=== PATIENT | female | born 1990 ===

== ENCOUNTER 2018-06-27 19:20 | Emergency (ER) | payer SELFPAY ==
[2018-06-27 19:20] VITALS: BMI 25.2
[2018-06-27 19:28] VITALS: RESP 18; TEMP 98.6; O2SAT 99
--- NOTE | 2018-06-27 20:09 | ED PDOC ---
HPI: Female Pain Time Seen by Provider: 06/27/18 20:07 Chief Complaint (Nursing): Female Genitourinary Chief Complaint (Provider): vaginal bleeding History Per: Patient (28 y/o female here with vaginal bleeding and lower abdominal pain crampy today. Patient took a urine test at home. Concerned she will miscarry with heavy bleeding. Has had one normal vaginal delivery;2nd delivery complicated and patient placed on bed rest with cervical cerclage..) Past Medical History Reviewed: Historical Data, Nursing Documentation, Vital Signs Vital Signs: Last Vital Signs Temp 98.6 F 06/27/18 19:25 Pulse 78 06/27/18 19:25 Resp 18 06/27/18 19:25 BP 120/79 06/27/18 19:25 Pulse Ox 99 06/27/18 19:25 - Medical History PMH: Anxiety, Asthma, Gall Bladder Disease (Gallstones), Migraine Denies: Chronic Kidney Disease - Surgical History Surgical History: (1 month ago) - Family History Family History: States: Unknown Family Hx - Immunization History Hx Tetanus Toxoid Vaccination: No Hx Influenza Vaccination: No Hx Pneumococcal Vaccination: No - Home Medications Home Medications: Ambulatory Orders Medication Instructions Recorded Promethazine DM [Phenergan DM 10 ml PO Q8 PRN #300 ml 08/01/17 Syrup] - Allergies Allergies/Adverse Reactions: Allergies Allergy/AdvReac Type Severity Reaction Status Date / Time No Known Allergies Allergy Verified 08/01/17 16:03 Review of Systems ROS Statement: Except As Marked, All Systems Reviewed And Found Negative Physical Exam - Reviewed Nursing Documentation Reviewed: Yes Vital Signs Reviewed: Yes - Physical Exam Appears: Positive for: Well, Non-toxic, No Acute Distress Head Exam: Positive for: ATRAUMATIC, NORMAL INSPECTION, NORMOCEPHALIC Skin: Positive for: Normal Color, Warm, DRY Eye Exam: Positive for: EOMI, Normal appearance, PERRL ENT: Positive for: Normal ENT Inspection Neck: Positive for: Normal, Painless ROM Cardiovascular/Chest: Positive for: Regular Rate, Rhythm Respiratory: Positive for: CNT, Normal Breath Sounds Gastrointestinal/Abdominal: Positive for: Normal Exam, Soft Back: Positive for: Normal Inspection Extremity: Positive for: Normal ROM Neurologic/Psych: Positive for: Alert, Oriented - ECG O2 Sat by Pulse Oximetry: 99 Disposition - Clinical Impression Clinical Impression: Threatened miscarriage in early - Patient ED Disposition Is Patient to be Admitted: Transfer of Care - Disposition Disposition Time: 20:09 Condition: FAIR Patient Signed Over To: Jsa Mcleod Handoff Comments: bloodwork/us
[2018-06-27 20:30] LABS: BASO % 0.6 % (0.0-2.0); EOS % 0.6 % (0.0-4.0); HEMOGLOBIN 14.5 g/dL (12.0-16.0); LYMPH # 1.6 K/uL (1.0-4.3); LYMPH % 20.4 % (20.0-40.0); MEAN CELL VOLUME 91.4 fl (81.0-99.0); MEAN CORPUSCULAR HEMOGLOBIN 31.2 pg (27.0-31.0); MEAN CORPUSCULAR HGB CONC 34.1 g/dL (33.0-37.0); MEAN PLATELET VOLUME 8.9 fl (7.2-11.7); MONO # 0.5 K/uL (0.0-0.8); MONO % 6.1 % (0.0-10.0); NEUT # 5.6 K/uL (1.8-7.0); NEUT % 72.3 % (50.0-75.0); RBC 4.65 Mil/uL (3.80-5.20); RED CELL DISTRIBUTION WIDTH 13.4 % (11.5-14.5); WHITE BLOOD COUNT 7.7 K/uL (4.8-10.8)
[2018-06-27 20:38] LABS: SQUAMOUS EPITHIAL 1 /hpf (0-5); URINE BILIRUBIN NEGATIVE (NEGATIVE); URINE BLOOD LARGE (NEGATIVE); URINE CLARITY CLEAR (Clear); URINE COLOR YELLOW (YELLOW); URINE GLUCOSE (UA) NEG (NEGATIVE); URINE LEUKOCYTE ESTERASE NEG Leu/uL (Negative); URINE PROTEIN NEGATIVE (NEGATIVE); URINE UROBILINOGEN 0.2-1.0 mg/dL (0.2-1.0)
[2018-06-27 20:52] LABS: ALB/GLOB RATIO 1.5 (1.0-2.1); ALBUMIN 4.7 g/dL (3.5-5.0); ALT/SGPT 28 U/L (9-52); AST/SGOT 24 U/L (14-36); BLOOD UREA NITROGEN 11 mg/dl (7-17); CALCIUM 9.6 mg/dL (8.4-10.2); GFR NON-AFRICAN AMERICAN > 60
--- NOTE | 2018-06-27 21:57 | ED PDOC ---
- Laboratory Results Result Diagrams: 06/27/18 20:10 06/27/18 20:10 Lab Results: Total Bilirubin 0.9 mg/dl (0.2-1.3) 06/27/18 20:10 AST 24 U/L (14-36) 06/27/18 20:10 ALT 28 U/L (9-52) 06/27/18 20:10 Alkaline Phosphatase 75 U/L (38-126) 06/27/18 20:10 Total Protein 7.7 G/DL (6.3-8.2) 06/27/18 20:10 Albumin 4.7 g/dL (3.5-5.0) 06/27/18 20:10 Globulin 3.0 gm/dL (2.2-3.9) 06/27/18 20:10 Albumin/Globulin Ratio 1.5 (1.0-2.1) 06/27/18 20:10 Urine Color Yellow (YELLOW) 06/27/18 20:10 Urine Clarity Clear (Clear) 06/27/18 20:10 Urine pH 7.0 (5.0-8.0) 06/27/18 20:10 Ur Specific [place] 1.016 (1.003-1.030) 06/27/18 20:10 Urine Protein Negative mg/dL (NEGATIVE) 06/27/18 20:10 Urine Glucose (UA) Neg mg/dL (NEGATIVE) 06/27/18 20:10 Urine Ketones Negative mg/dL (NEGATIVE) 06/27/18 20:10 Urine Blood Large (NEGATIVE) 06/27/18 20:10 Urine Nitrate Negative (NEGATIVE) 06/27/18 20:10 Urine Bilirubin Negative (NEGATIVE) 06/27/18 20:10 Urine Urobilinogen 0.2-1.0 mg/dL (0.2-1.0) 06/27/18 20:10 Ur Leukocyte Esterase Neg Rohan/uL (Negative) 06/27/18 20:10 Urine RBC (Auto) 22 /hpf (0-3) H 06/27/18 20:10 Urine Microscopic WBC 1 /hpf (0-5) 06/27/18 20:10 Ur Squamous Epith Cells 1 /hpf (0-5) 06/27/18 20:10 Beta HCG, Quant 1310.40 mIU/mL 06/27/18 20:10 - ECG O2 Sat by Pulse Oximetry: 99 (RA) Pulse Ox Interpretation: Normal Medical Decision Making Medical Decision Making: Time: 2152 US RESULTS Findings Uterus Single intrauterine gestation. CRL equivalent to 7 wks/6 days gestation Gestational sac diameter equivalent to 7wks/4 days gestation Heart rate: Not detected. Tavia-gestational hemorrhage: None. Uterus measures 9.9 x 5.1 x 3.47 cm. No mass. Cervix Long and closed measuring 3.2 cm. No cervical abnormality seen. Right Ovary Measures 2.2 x 1.8 x 1.8 cm with volume of 2.21 cc. No mass. Normal flow. Left Ovary Measures 2.8 x 2.1 x 1.5 cm with volume of 4.48 cc. No mass. Normal flow. Free Fluid None. Other Findings None. Impression 1. Single intrauterine gestation. CRL equivalent to 7 wks/6 days gestation 2. No heart motion is detected compatible with demise. Electronically signed on Jun 27, 2018 9:53:37 PM EST by: Jayjay Ring M.D., BELKYS Certified By [facility] [employer] [facility] Fellowship Trained MRI and CT Specialist Disposition - Clinical Impression Clinical Impression: Threatened miscarriage in early - POA Present On Arrival: None - Disposition [facility]errals: [facility] [Outside] [facility] [[facility]] Disposition: Routine/Home Disposition Time: 23:20 Condition: STABLE Instructions: Threatened Miscarriage (DC), Bleeding With (DC) Forms: [employer] ([place]an)
[2018-06-27 23:21] VITALS: BP 114/66; PULSE 75
--- NOTE | 2018-06-28 09:35 | US ---
Date of service: 06/27/2018 PROCEDURE: Obstetrical ultrasound examination HISTORY: threatened miscarriage COMPARISON: Not available TECHNIQUE: Transabdominal and transvaginal FINDINGS: The uterus measures 9.9 x 5.1 x 3.4 cm. There is no uterine mass. Intrauterine gestational sac noted measuring 28 mm in mean diameter, corresponding to 7 weeks 4 days. pole measures 15 mm corresponding to 7 weeks 6 days. No detectable cardiac activity. Sac contents are somewhat heterogeneous. Findings concerning for demise. No subchorionic hemorrhage appreciated. Cervix closed. Right ovary measures 1.8 x 1.8 x 2.2 cm. Normal flow demonstrated. No mass. Left ovary measures 2.1 x 1.5 x 2.8 cm. Normal flow demonstrated. No mass. No fluid seen in cul-de-sac. IMPRESSION: Intrauterine gestational sac with somewhat atypical morphology and no detectable cardiac activity. Bow Mar-rump length 15 mm equivalent to 7 weeks 6 days. Please correlate with serial beta HCG evaluation. The preliminary findings for this examination were reported by [facility] at 06/27/2018 at 9:53 p.m.. There is concurrence of this report with the preliminary findings.
== END 2018-06-27 23:25 | disposition home or self-care (01) ==
LOC: H.ER 19:20
DX: O20.0 Threatened abortion (principal); O09.291 Supervision of pregnancy with other poor reproductive or obstetric history, first trimester; O99.511 Diseases of the respiratory system complicating pregnancy, first trimester; J45.909 Unspecified asthma, uncomplicated; Z3A.01 Less than 8 weeks gestation of pregnancy